=== PATIENT | female | born 1950 | race Caucasian/White ===

== ENCOUNTER 2022-05-02 11:28 | Outpatient (CLI) | payer MEDICARE, SELFPAY ==
--- NOTE | 2022-05-02 11:51 | ECG_ITS ---
Measurements Intervals [place] Rate: 88 P: 56 OK: 189 QRS: 12 QRSD: 99 T: 43 QT: 367 QTc: 446 Interpretive Statements SINUS RHYTHM WITH SINUS ARRHYTHMIA POSSIBLE LEFT ATRIAL ENLARGEMENT [-0.1mV P WAVE IN V1/V2] POSSIBLE LEFT VENTRICULAR HYPERTROPHY [VOLTAGE CRITERIA PLUS LAE OR QRS WIDENING] BORDERLINE ECG NO PREVIOUS ECG AVAILABLE FOR COMPARISON Electronically Signed On 05-02-2022 15:43:13 CDT by Kenneth Lazar M.D.
== END 2022-05-02 11:29 | disposition home or self-care (01) ==
PROVIDERS: PCP Family Medicine; Visit Provider Plastic Surgery
DX: Z01.810 Encounter for preprocedural cardiovascular examination (principal); I10 Essential (primary) hypertension
CPT/HCPCS: 93005

== ENCOUNTER 2022-05-08 02:16 | Day surgery (SDC) | payer MEDICARE, SELFPAY ==
[2022-04-28 14:21] VITALS: BMI 22.8
--- NOTE | 2022-04-28 14:38 | PC.NURSE ---
PRE-OP INSTRUCTIONS, PLEASE READ CAREFULLY Report to the Outpatient Waiting Room, entrance under the green pavilion located off [facility], at time _0600_ on date _05/08/22_. OR Time: _0930_. NUC MED INJECTION SCHEDULED FOR 0700 Time changes happen often and if your time is changed the preop area will call you the afternoon before. - You and your visitor will be asked to self-screen and do not enter if you have any COVID symptoms. - We encourage only one visitor and NO visitors under age 16 are allowed at this time. Your visitor will receive communication by the phone number that is given day of service. - The patient visitor is requested to social distance or may leave the building when not with patient due to restrictions. - A mask is required within the hospital. Patients may have clear liquids (water, carbonated beverages, clear teas, apple juice) until 3 hours prior to surgery (0630 AM) with a maximum of 20 ounces. - No food from midnight until time of surgery Take the following medications with a SIP of water the morning of surgery: _EYE DROP_ Medications to discontinue per ANESTHESIA -_VITAMINS/SUPPLEMENTS 3 DAYS PRIOR TO SURGERY, Date to take last dose 05/04/22_ Please no make-up, nail kyrgyz, hairspray, perfume, deodorant, or body powder the day of surgery. No jewelry (including any body piercings) or valuables the day of surgery, leave them at home. Please take a shower or bath the night before, or the morning of, surgery with an antibacterial soap. Wear comfortable, loose fitting clothing. - Jewelry must be removed prior to entering the operating room. Rings and piercings that are not removed may be cut off. - The hospital will not accept responsibility for valuables. - Please leave all valuables, including medications, at home the day of surgery. If you are going home after surgery, a licensed taxicab driver must drive you home. - NO public transportation without another adult. - We recommend that an adult stay with you for 24 hours following discharge. - We also recommend that you do not drive, make important decision, drink alcoholic beverages, or take any drugs that were not prescribed by your health care provider for at least 24 hours after your discharge time. Follow any additional instructions given to you from your surgeon. If you or anyone in your household have experienced Covid symptoms in the past week, please notify your surgeon or the nurse liaison at the phone number below for possible testing. Telephone instructions given to ___PT and asked if any additional questions and then verbalized understanding. Patient advised to call surgeon office or pre surgery nurse liaison [phone] if any additional questions.
[2022-05-08] VITALS (10 sets, daily range): BP systolic 121–144; BP diastolic 72–88; PULSE 78–106; RESP 12–20; TEMP 36.6; O2SAT 96–100
--- NOTE | ~2022-05-08 | NM_ITS ---
NM sentinel node inject only 05/08/2022 10:45 CDT INDICATION: History of melanoma of the right arm. TECHNIQUE: 0.487 Millicuries Tc 99m filtered sulfur colloid was injected into aliquots in the right a rm adjacent to the area of interest. Initial images demonstrate the injection site with demonstrates subtle uptake in a right axillary lymph node. IMPRESSION: 1: Status post radiopharmaceutical injection adjacent to melanoma site in the right upper extremity. Delayed images demonstrate subtle uptake in a right axillary lymph node. Reviewed, dictated and finalized at location A. IMPRESSION: 1: Status post radiopharmaceutical injection adjacent to melanoma site in the r ight upper extremity. Delayed images demonstrate subtle uptake in a right axill leoncio lymph node.
--- NOTE | 2022-05-08 07:17 | WPDHPUPDATE1 ---
History and Physical Update Update Date/Time: 05/08/22 07:17 History and Physical has been reviewed, including an updated exam of the patient. There are NO changes in the patient's condition. Risks, benefits, and alternatives have been discussed and questions answered. Patient agrees to proceed with procedure.
[2022-05-08] MEDS: LACTATED RINGERS 1,000 ML 30 ML IV CONT ×2 (07:40→12:10)
--- NOTE | 2022-05-08 09:49 | P.PNAN_ITS ---
Anes - Initial Pre Proc Eval Procedure: Operation Date: 05/08/22 09:30 Proposed Procedures p Wide Excision Melanoma Right Arm with [place] Lymph Node Biopsy - Erik Hearn MD Date/Time: 05/08/22 09:49 Surgeon: Erik Hearn MD Pre Op Diagnosis: Melanoma Right Arm Patient Data Age: 71 Gender: F Height: 1.63 m Weight: 62.2 kg Last Vital Signs Temp 97.8 F 05/08/22 07:34 Pulse 84 05/08/22 07:34 Resp 16 05/08/22 07:34 BP 126/87 05/08/22 07:34 Pulse Ox 100 05/08/22 07:34 O2 Del Method Room Air 05/08/22 07:34 Allergies Allergy/AdvReac Type Severity Reaction Status Date / Time codeine Allergy Severe N/V Verified 05/08/22 07:50 Home Medications Medication Instructions Recorded Confirmed Type Retore Eye Promis 1 tab-cap QAM 04/28/22 05/08/22 History acetylcysteine (bulk) 2 ea miscellaneous QAM 04/28/22 05/08/22 History alendronate 70 mg tablet 70 mg PO WEEKLY 04/28/22 05/08/22 History ascorbic acid (vitamin C) 500 mg 500 mg PO BID 04/28/22 05/08/22 History tablet (Vitamin C) scott [id number]-vnl-[id number]-Pp-ovw-zvs-bor 1 cap BID 04/28/22 05/08/22 History estradiol 0.01% (0.1 mg/gram) See Rx Instructions .Route .COMPLEX 04/28/22 05/08/22 History vaginal cream anvdpufuubf-mqf-ofneyyubh-vitC 2 cap PO BID 04/28/22 05/08/22 History capsule (Glucosamine Complex-MSM capsule) latanoprost 0.005 % eye drops 1 drp QAM 04/28/22 05/08/22 History lisinopril 10 mg tablet 10 mg QAM 04/28/22 05/08/22 History multivitamin 1 tablet QAM 04/28/22 05/08/22 History Patient hx anesthesia problems: none Family hx anesthesia problems: none Results Review: All pre-operative results and documents have been reviewed as part of the pre- operative evaluation. [facility] Past Medical History Medical History (Updated 10/20/22 @ 09:50 by Alex Hernandez MD) Arthritis Glaucoma Hypertension Osteoporosis Social History Social History Smoking status: Former smoker Tobacco type: cigarettes Second hand tobacco smoke exposure: No Additional smoking assessment comments: STATES 1PK/WEEK/3-4YRS/QUIT MID Alcohol intake: never Substance use: never Substance use type: does not use Living arrangements: with family Spiritual care concerns: No Anes - Eval Final PreProcedure Day of Procedure 05/08/22 09:49 Patient weight: normal Heart: regular rate and rhythm Lungs: clear to auscultation Airway: Mallampati scale Neurological: alert and oriented Last oral intake: >/= 8 hours ASA classification: II Emergent: no Anesthetic plan: proceed Anesthesia type and monitoring: general GIVS and standard monitoring Results Review: All pre-operative results and documents have been reviewed as part of the pre- operative evaluation. Informed Consent: The patient's anesthetic plan and its attendant risks and benefits were discussed with the patient/family/POA. Questions were solicited and answers provided to the satisfaction of the patient/family/POA.
--- NOTE | 2022-05-08 12:37 | W.PM.PROC2 ---
Procedure Note - Detailed Date of Procedure 05/08/22 Pre-op Diagnosis Melanoma Right Arm Post-op Diagnosis Same Procedure Performed Wide excision of melanoma of right arm with intermediate repair 11 cm and right axillary sentinel node biopsy Surgeon Erik Hearn MD Cephalometric Technician Gogo Anesthesia General Description of Procedure In the holding area the patient's right arm biopsy site as well as the right axillary sentinel node site were marked. The patient was then taken to the operating room where she was placed supine on the operating table. She was given general anesthesia. The right upper arm and shoulder area were prepped and draped in usual fashion. A positive sentinel node was identified in nuclear Medicine and the spot had been marked on the anterior axilla. We were able to confirm that site with the gamma probe. The right lateral arm was marked for excision. This skin scar was approximately 1 cm length. 0.5 cm was marked all around that, including from the tips. From that line radially an additional 1 cm lower sioux was marked. This area was infiltrated with 1% lidocaine with epinephrine. This excision was carried 1st through full-thickness of skin and subcutaneous fat layer to the deep fascia. I did not encounter cutaneous nerves with significant sized and some the deep fascia was taken. The specimen was sent to pathology. The subcutaneous tissue was undermined about 1 cm in all directions allowing relaxed coaptation with 2 0 Vicryl sutures. Additional subcutaneous closure was done with intradermal 3-0 Vicryl. Standing cones were removed from both ends a amounting to 2 cm on each end. The skin was closed with a running 5 0 nylon. Attention was then turned to the right axilla were again the sentinel note was confirmed with the probe. An anterior axillary excision was planned and this area was infiltrated with 1% lidocaine with epinephrine. Dissection was carried through the subcutaneous tissue into the axillary fat pad. The probe identified a very small lymph node. This rated in high 90s in vivo. This tissue was brought out after clamping a pedicle with hemoclips. The gamma activity was again confirmed in high 90s on the back table. The background reading within the axilla did not exceed 15. That wound was closed with a couple of 3-0 Vicryl sutures in a superficial fashion and several Vicryl in the dermis and then secured with glue. Estimated Blood Loss -20.0 Tourniquet Time 0 Drains No Packing No Pathology Yes Complications No immediate complications Condition Stable Disposition PACU
== END 2022-05-08 14:20 | disposition home or self-care (01) ==
PROVIDERS: PCP Family Medicine; Visit Provider Plastic Surgery
PROC: (CPT 11606; principal; 2022-05-08 09:30)
DX: C43.61 Malignant melanoma of right upper limb, including shoulder (principal); I10 Essential (primary) hypertension; M81.0 Age-related osteoporosis without current pathological fracture; H40.9 Unspecified glaucoma; Z87.891 Personal history of nicotine dependence
CPT/HCPCS: 11606; 12035; 38525; 38792; 88305; 88307; 88342; 93005; A9270; A9520; C1713; J1100; J1885; J2370; J2405; J2704; J3010; J7120

== ENCOUNTER 2022-06-06 12:28 | Outpatient (CLI) | payer MEDICARE, SELFPAY ==
--- NOTE | ~2022-06-06 | XR_ITS ---
XR chest 2V 06/06/2022 12:46 Indication: Malignant melanoma of the right upper extremity. Procedure: 2 view chest Comparison: No prior studies for comparison. Findings: Heart size normal. No focal air space disease, pulmonary edema, pleural effusion or suspect ed pneumothorax. No acute osseous abnormality. There is severe S-shaped scoliosis of the thoracolumbar spine. Impression: 1: No acute cardiopulmonary disease. Reviewed, dictated and finalized at location A. OR BILLING CONSULTANT Impression: 1: No acute cardiopulmonary disease.
== END 2022-06-06 12:29 | disposition home or self-care (01) ==
LOC: ANHIMG 12:34
PROVIDERS: PCP Family Medicine; Visit Provider Internal Medicine Hematology & Oncology
DX: C43.61 Malignant melanoma of right upper limb, including shoulder (principal)
CPT/HCPCS: 71046